=== PATIENT | female | born 1965 | race Caucasian/White ===

== ENCOUNTER 2017-02-01 17:29 | Emergency (ER) | payer MEDICAID ==
[~2017-02-01 17:29] MED LIST: ABILIFY20 MG PO; ACT30 PO; ALLERGY RELIEF10 MG PO; ASPIRIN81 M1 PO; DOK100 M2 PO; GLUCOTROL5 MG PO; HYD25 PO; IBIFON 600600 MG PO; LAMICTAL XR250 MG PO; LANTI SQ; LEXAPRO5 MG PO; LIP80 PO; METFORMIN HCL850 MG PO; PRO40 PO; RANITIDINE150 MG PO; REGLAN10 MG PO; SING10 PO; VENTOLIN H0.09 MG/Ac PO; ZES10 PO
[2017-02-01 21:22] VITALS: BP 142/79
== END 2017-02-01 21:22 | disposition home or self-care (01) ==
LOC: ED 17:29
DX: N61.0 Mastitis without abscess (principal); I10 Essential (primary) hypertension; E11.9 Type 2 diabetes mellitus without complications; E78.00 Pure hypercholesterolemia, unspecified; Z88.2 Allergy status to sulfonamides; Z88.8 Allergy status to other drugs, medicaments and biological substances
CPT/HCPCS: 76641

== ENCOUNTER 2017-04-23 15:14 | Emergency (ER) | payer MEDICAID | END 2017-04-23 17:11 | disposition left against medical advice (07) | LOC: ED 15:14 | DX: Z53.21 Procedure and treatment not carried out due to patient leaving prior to being seen by health care provider (principal) ==

== ENCOUNTER 2017-05-01 04:51 | Emergency (ER) | payer MEDICAID ==
[~2017-05-01] VITALS: Ht 162.6 cm; Wt 117.9 kg
[2017-05-01 04:59] VITALS: Ht 162.6 cm; Wt 117.9 kg
[2017-05-01 08:12] VITALS: BP 115/74
== END 2017-05-01 08:12 | disposition home or self-care (01) ==
LOC: ED 04:51
DX: J06.9 Acute upper respiratory infection, unspecified (principal); I10 Essential (primary) hypertension; E11.9 Type 2 diabetes mellitus without complications; E78.00 Pure hypercholesterolemia, unspecified; Z88.2 Allergy status to sulfonamides; Z88.1 Allergy status to other antibiotic agents
CPT/HCPCS: 82962; Q0162

== ENCOUNTER 2017-05-03 22:06 | Emergency (ER) | payer MEDICAID ==
[2017-05-03 23:10] LABS: BASOPHIL % 0.5 % (0-2); PLATELET COUNT 332 x10^3mcL (130-400)
[2017-05-03 23:13] LABS: CALCIUM 8.8 mg/dL (8.5-10.1); CARBON DIOXIDE 24.7 mmol/L (21-32); CREATININE SERUM 1.1 mg/dL (0.6-1.0); POTASSIUM SERUM 3.9 mmol/L (3.5-5.1)
[2017-05-03 23:17] LABS: UA SPECIFIC GRAVITY 1.025 (1.005-1.035); microscopic required? YES; urine erythrocyte 3+ (NEGATIVE)
[2017-05-03 23:18] LABS: ALBUMIN 3.4 g/dL (3.4-5.0); BILIRUBIN TOTAL 0.2 mg/dL (0.20-1.00); TOTAL PROTEIN, SERUM 7.1 g/dL (6.4-8.2)
[2017-05-04 00:48] VITALS: BP 140/84
== END 2017-05-04 00:48 | disposition home or self-care (01) ==
LOC: ED 22:06
PROVIDERS: Emergency Medicine
DX: N39.0 Urinary tract infection, site not specified (principal); E11.65 Type 2 diabetes mellitus with hyperglycemia; I10 Essential (primary) hypertension; E78.00 Pure hypercholesterolemia, unspecified; Z88.1 Allergy status to other antibiotic agents; Z88.6 Allergy status to analgesic agent
CPT/HCPCS: J0696; J2270

== ENCOUNTER 2017-07-16 15:31 | Emergency (ER) | payer MEDICAID ==
[~2017-07-16] VITALS: Ht 162.6 cm; Wt 119.7 kg
[2017-07-16 16:38] LABS: microscopic required? NO
[2017-07-16 17:06] LABS: BASOPHIL % 0.6 % (0-2); PLATELET COUNT 254 x10^3mcL (130-400); RED CELL DISTRIBUTION WIDTH 13.8 % (11.5-14.5)
[2017-07-16 17:18] LABS: urine erythrocyte NEGATIVE (NEGATIVE)
[2017-07-16 17:19] LABS: CALCIUM 8.3 mg/dL (8.5-10.1); CARBON DIOXIDE 26.4 mmol/L (21-32); CHLORIDE SERUM 102 mmol/L (98-107); GFR1 > 60 mL/min; GLUCOSE SERUM 394 mg/dL (74-106); POTASSIUM SERUM 3.9 mmol/L (3.5-5.1); SODIUM SERUM 136 mmol/L (136-145)
[2017-07-16 17:31] LABS: ALBUMIN 2.9 g/dL (3.4-5.0); ALKALINE PHOSPHATASE 119 U/L (46-116); ALT/SGPT 25 U/L (14-59); AMYLASE 70 U/L (25-115); AST/SGOT 10 U/L (15-37); BILIRUBIN TOTAL 0.1 mg/dL (0.20-1.00); CHOLESTEROL 170 mg/dL (<200); HDL CHOLESTEROL 40 mg/dL (40-60); LIPASE 607 IU/L (73-393); T4(THYROXINE) 6.4 ug/dL (4.7-13.3); TOTAL PROTEIN, SERUM 6.1 g/dL (6.4-8.2)
[2017-07-16 18:59] VITALS: BP 132/71
== END 2017-07-16 19:00 | disposition home or self-care (01) ==
LOC: ED 15:31
PROVIDERS: Emergency Medicine
DX: K85.90 Acute pancreatitis without necrosis or infection, unspecified (principal); E11.65 Type 2 diabetes mellitus with hyperglycemia; I10 Essential (primary) hypertension; E66.01 Morbid (severe) obesity due to excess calories; E78.00 Pure hypercholesterolemia, unspecified; F17.210 Nicotine dependence, cigarettes, uncomplicated; Z71.6 Tobacco abuse counseling; Z90.5 Acquired absence of kidney; Z88.1 Allergy status to other antibiotic agents
CPT/HCPCS: 82962; 83880; 99406; J1815; J2405; J3010; J7030

== ENCOUNTER 2017-10-26 20:10 | Emergency (ER) | payer MEDICAID ==
[~2017-10-26] VITALS: Ht 162.6 cm; Wt 116.6 kg
[2017-10-26 20:15] VITALS: Ht 162.6 cm; Wt 116.6 kg
[2017-10-26 20:56] LABS: BASOPHIL % 0.8 % (0-2); PLATELET COUNT 304 x10^3mcL (130-400); RED CELL DISTRIBUTION WIDTH 14.1 % (11.5-14.5)
[2017-10-26 21:06] LABS: CALCIUM 8.7 mg/dL (8.5-10.1); CARBON DIOXIDE 24.9 mmol/L (21-32); CREATININE SERUM 1.2 mg/dL (0.6-1.0); POTASSIUM SERUM 4.2 mmol/L (3.5-5.1)
[2017-10-26 21:10] LABS: BILIRUBIN TOTAL 0.31 mg/dL (0.20-1.00); TOTAL PROTEIN, SERUM 6.3 g/dL (6.4-8.2)
[2017-10-26 23:25] VITALS: BP 127/77
== END 2017-10-26 23:26 | disposition home or self-care (01) ==
LOC: ED 20:10
PROVIDERS: Emergency Medicine
DX: K59.00 Constipation, unspecified (principal); R05 Cough; I10 Essential (primary) hypertension; E11.9 Type 2 diabetes mellitus without complications; Z88.8 Allergy status to other drugs, medicaments and biological substances
CPT/HCPCS: J2270; J2405; Q0092

== ENCOUNTER 2018-03-28 19:42 | Emergency (ER) | payer MEDICAID ==
[~2018-03-28] VITALS: Ht 162.6 cm; Wt 116.6 kg
[2018-03-28 20:07] VITALS: Ht 162.6 cm; Wt 116.6 kg
[2018-03-28 20:40] LABS: BASOPHIL % 1.1 % (0-2); PLATELET COUNT 307 x10^3mcL (130-400); RED CELL DISTRIBUTION WIDTH 13.5 % (11.5-14.5)
[2018-03-28 21:00] LABS: CALCIUM 9.5 mg/dL (8.5-10.1); CARBON DIOXIDE 29.7 mmol/L (21-32); CHLORIDE SERUM 100 mmol/L (98-107); GFR1 > 60 mL/min; GLUCOSE SERUM 232 mg/dL (74-106); POTASSIUM SERUM 3.8 mmol/L (3.5-5.1); SODIUM SERUM 136 mmol/L (136-145)
[2018-03-28 21:05] LABS: ALBUMIN 3.5 g/dL (3.4-5.0); ALKALINE PHOSPHATASE 156 U/L (46-116); ALT/SGPT 36 U/L (14-59); AST/SGOT 12 U/L (15-37); BILIRUBIN TOTAL 0.35 mg/dL (0.20-1.00); LIPASE 121 IU/L (73-393); TOTAL PROTEIN, SERUM 7.3 g/dL (6.4-8.2)
[2018-03-28 23:22] VITALS: BP 116/64
== END 2018-03-28 23:23 | disposition home or self-care (01) ==
LOC: ED 19:42
PROVIDERS: Emergency Medicine
DX: R10.12 Left upper quadrant pain (principal); R10.32 Left lower quadrant pain; R51 Headache; I10 Essential (primary) hypertension; E11.9 Type 2 diabetes mellitus without complications; E78.00 Pure hypercholesterolemia, unspecified; Z98.890 Other specified postprocedural states; Z88.1 Allergy status to other antibiotic agents; Z88.2 Allergy status to sulfonamides
CPT/HCPCS: J2270; J2765; Q0092

== ENCOUNTER 2018-08-10 16:57 | Emergency (ER) | payer MEDICAID ==
[2018-08-10 18:26] LABS: BASOPHIL % 0.3 % (0-2); PLATELET COUNT 287 x10^3mcL (130-400); RED CELL DISTRIBUTION WIDTH 13.8 % (11.5-14.5)
[2018-08-10 18:38] LABS: UA SPECIFIC GRAVITY >=1.030 (1.005-1.035); microscopic required? YES; urine erythrocyte 3+ (NEGATIVE)
[2018-08-10 19:39] LABS: ALKALINE PHOSPHATASE 142 U/L (46-116); ALT/SGPT 28 U/L (14-59); AST/SGOT 14 U/L (15-37); BILIRUBIN TOTAL 0.27 mg/dL (0.20-1.00); CALCIUM 8.5 mg/dL (8.5-10.1); CARBON DIOXIDE 26.9 mmol/L (21-32); CHLORIDE SERUM 106 mmol/L (98-107); CREATININE SERUM 0.9 mg/dL (0.6-1.0); GFR1 > 60 mL/min; GLUCOSE SERUM 72 mg/dL (74-106); POTASSIUM SERUM 3.5 mmol/L (3.5-5.1); SODIUM SERUM 140 mmol/L (136-145); TOTAL PROTEIN, SERUM 6.7 g/dL (6.4-8.2)
[2018-08-10 19:40] LABS: ALBUMIN 3.3 g/dL (3.4-5.0)
[2018-08-10 22:33] VITALS: BP 128/88
== END 2018-08-10 22:33 | disposition home or self-care (01) ==
LOC: ED 16:57
PROVIDERS: Emergency Medicine
DX: N39.0 Urinary tract infection, site not specified (principal); I10 Essential (primary) hypertension; E11.9 Type 2 diabetes mellitus without complications; E78.00 Pure hypercholesterolemia, unspecified; Z98.890 Other specified postprocedural states; Z88.2 Allergy status to sulfonamides; Z88.1 Allergy status to other antibiotic agents; Z90.89 Acquired absence of other organs
CPT/HCPCS: 82962; J0696; J1885; J2270; J7030

== ENCOUNTER 2018-08-18 12:19 | Inpatient (IN) | payer MEDICAID ==
[~2018-08-18] VITALS: Ht 162.6 cm; Wt 114.3 kg
[2018-08-18 12:22] VITALS: Ht 162.6 cm; Wt 114.3 kg
--- NOTE | 2018-08-18 13:11 | NUR ---
PT BIB SELF C/C CP STS STARTED LAST NIGHT STS LT NUMBNESS X 1 WK PLACED ON MONITOR AWAITING FOR DR GENEVIEVE MENDEZ
--- NOTE | 2018-08-18 13:36 | NUR ---
DR BUTLER AT BEDSIDE TO VANESSA
[2018-08-18 13:56] LABS: PLATELET COUNT 242 x10^3mcL (130-400); RED CELL DISTRIBUTION WIDTH 13.8 % (11.5-14.5)
--- NOTE | 2018-08-18 14:01 | NUR ---
XRAY AT BEDSIDE
[2018-08-18 14:08] LABS: CARBON DIOXIDE 27.4 mmol/L (21-32); CHLORIDE SERUM 99 mmol/L (98-107); CREATININE SERUM 0.9 mg/dL (0.6-1.0); GFR1 > 60 mL/min; GLUCOSE SERUM 402 mg/dL (74-106); SODIUM SERUM 135 mmol/L (136-145)
[2018-08-18 14:13] LABS: ALKALINE PHOSPHATASE 175 U/L (46-116); ALT/SGPT 28 U/L (14-59); AST/SGOT 11 U/L (15-37); BILIRUBIN TOTAL 0.2 mg/dL (0.20-1.00); CHOLESTEROL 186 mg/dL (<200); HDL CHOLESTEROL 46 mg/dL (40-60); TOTAL PROTEIN, SERUM 6.9 g/dL (6.4-8.2)
[2018-08-18 14:15] LABS: ALBUMIN 3.2 g/dL (3.4-5.0); TRIGLYCERIDES 231 mg/dL (<150)
[2018-08-18 14:52] LABS: AMPHETAMINE QUAL UR NONE DETECTED (See below)
[2018-08-18 15:34] LABS: BAND NEUTROPHIL 0 % (0-10); SEGMENTED NEUTROPHILS 73 % (37-75)
[2018-08-18 15:35] LABS: MONOCYTE 6 % (0-7); rbc morphology (normal/abnorm) ABNORMAL (NORMAL)
--- NOTE | 2018-08-18 17:25 | NUR ---
MANAGER OF REVENUE AT BEDSIDE FOR BLOOD DRAW
--- NOTE | 2018-08-18 17:57 | NUR ---
PLEASE ENTER FULL NAMES OF CARPET FINISHING SUPERVISOR/RN Patient data collected by (CARPET FINISHING SUPERVISOR):Anselmo PORRAS Assessment reviewed and completed by (RN):Valentín ROMAN
--- NOTE | 2018-08-18 19:12 | NUR ---
REPORT RECIEVED FROM MARLON LINE INSPECTOR. PT LAYING IN BED, AWAKE AND ALERT. VSS, RESPS E/U, NAD NOPTED AT THIS TIME. 2 BED RAILS UP, BED IN LOW AND LOCKED POSITION, CALL LIGHT W/IN REACH. PT C/O 01/01 PAIN, MADE AWARE.
--- NOTE | 2018-08-18 20:05 | NUR ---
MEDICATION ADMINISTERED PER MD ORDER
[2018-08-18 20:13] LABS: microscopic required? NO
--- NOTE | 2018-08-18 20:15 | NUR ---
PT AWAKE AND ALERT, LAYING IN POSITION OF COMFORT. 2 BED RAILS UP, BED IN LOW AND LOCKED POSITION. RESPS E/U, NAD NOTED. PT REPORTS RELIEF OF PAIN TO 4/10.
[2018-08-18 20:23] LABS: urine erythrocyte NEGATIVE (NEGATIVE)
[2018-08-18] MEDS ORDERED: ZESTRIL20 MG PO (20:46)
[2018-08-18] MEDS ORDERED: LANTUS SOLOS100 U/M1 (20:47)
--- NOTE | 2018-08-18 20:54 | NUR ---
REPORT GIVEN TO LORETO HERNANDES
[2018-08-18 20:56] LABS: T3 TOTAL 1.12 ng/mL
[2018-08-18 20:58] LABS: MAGNESIUM 1.7 mg/dL (1.8-2.4); PHOSPHOROUS 3.4 mg/dL (2.5-4.9)
[2018-08-18 21:09] LABS: FREE T4 1.02 ng/dL (0.76-1.46); FREE THYROXINE INDEX 2.6 ug/dL (1.4-4.5); T4(THYROXINE) 7.5 ug/dL (4.7-13.3)
[2018-08-18 21:31] VITALS: BP 119/76
--- NOTE | 2018-08-18 21:43 | NUR ---
RECEIVED PT FROM ER, PT ADMIT FOR CHEST PAIN, PT IS A/O X4, VERBAL RESPONSIVE, ABLE TO TELL WHAT SHE NEEDS. LUNG SOUND CLEAR BILATERAL, NO COUGH, NO SOB, PT IS ON TELE 18, NSR, C/O MILD CHEST PAIN 2/10, RADIATE TO BACK, AND NUMBNESS AT LEFT ARM AND FACE. BOWEL SOUND PRESENT ALL 4 QUADRANTS, NO DISTENTION, NO TENDER, PEDAL PULSE PRESENT BOTH FEET, NO EDEMA, IV AT LEFT HAND, NO LEAKING, NO INFILTRATION. ALL ADLS ASSIST, ALL NEED MET, CALL LIGHT IN REACH, WILL CONTINUE TO MONITOR.
--- NOTE | 2018-08-18 21:50 | NUR ---
RECIEVED PATIENT REPORTING 5/10 PAIN TO HER CHEST. TROPONIN NEG, TELE #18 NSR. WILL MEDICATE PER EMAR.
--- NOTE | 2018-08-18 22:08 | NUR ---
PATIENT MEDICATED WITH NORCO PER EMAR FOR 5/10 PAIN TO HER CHEST. ONE TIME ORDER FOR AMBIEN PO ALSO GIVEN PER EMAR. BED LOCKED AND IN LOWEST POSITION. CALL LIGHT AND BEDIDE TABLE WITHIN REACH. SAFETY REINFORCED. PATIENT ENCOURAGED TO USE CALL LIGHT FOR ALL NEEDS. WILL CONTINUE TO MONITOR.
[2018-08-19 06:10] VITALS: BP 117/68
--- NOTE | 2018-08-19 06:30 | NUR ---
PATIENT REPORTED MALDONADO AND STATES THAT SHE DOES NOT WANT TYLENOL OR NORCO. SHE REQUESTED IBUPROFEN INSTEAD. DR. TAN NOTIFIED. AWAITING ORDER.
[2018-08-19 06:43] LABS: BASOPHIL % 0.8 % (0-2); PLATELET COUNT 264 x10^3mcL (130-400); RED CELL DISTRIBUTION WIDTH 13.7 % (11.5-14.5)
[2018-08-19 07:06] LABS: CALCIUM 8.1 mg/dL (8.5-10.1); CARBON DIOXIDE 26.3 mmol/L (21-32); CHLORIDE SERUM 103 mmol/L (98-107); CREATININE SERUM 0.8 mg/dL (0.6-1.0); GFR1 > 60 mL/min; GLUCOSE SERUM 253 mg/dL (74-106); MAGNESIUM 1.8 mg/dL (1.8-2.4); PHOSPHOROUS 3.4 mg/dL (2.5-4.9); POTASSIUM SERUM 4.2 mmol/L (3.5-5.1); SODIUM SERUM 137 mmol/L (136-145)
--- NOTE | 2018-08-19 07:23 | NUR ---
RECEIVED PT FROM SHIFT NURSE ASLEEP BUT AROUSABLE. RESP EVEN AND UNLABORED ON RA. IV INTACT AND PATENT. BED IN LOW POSITION. CALL LIGHT WITHIN REACH. WILL CONTINUE TO MONITOR.
[2018-08-19 09:17] VITALS: BP 104/60
--- NOTE | 2018-08-19 10:45 | NUR ---
PT ASLEEP BUT AROUSABLE. APPEARS IN NO ACUTE DISTRESS. CALL LIGHT WITHIN REACH. WILL CONTINUE TO MONITOR.
--- NOTE | 2018-08-19 12:39 | NUR ---
PT SITTING UP IN BED EATING LUNCH. NO ACUTE DISTRESS NOTED. CALL LIGHT WITHIN REACH. WILL CONTINUE TO MONITOR.
[2018-08-19 12:43] VITALS: BP 130/61
--- NOTE | 2018-08-19 16:13 | NUR ---
PT C/O OF HEADACHE 12/01. GAVE NORCO ORDERED. WILL CONTINUE TO MONITOR.
--- NOTE | 2018-08-19 16:45 | NUR ---
PT ASLEEP BUT AROUSABLE. WILL CONTINUE TO MONITOR.
[2018-08-19 18:00] VITALS: BP 132/79
--- NOTE | 2018-08-19 18:19 | NUR ---
PT SITTING ON CHAIR EATING DINNER. NO C/O OF CHEST PAIN OR PRESSURE. IV INTACT AND PATENT. FAMILY MEMBER AT BEDSIDE. CALL LIGHT WITHIN REACH. WILL BE ENDORSED.
--- NOTE | 2018-08-19 19:30 | NUR ---
REC'D PT FROM DAY NURSE. AT BEDSIDE. PT SITTING AT THE SIDE OF THE BED. AAOX4, SPEECH CLEAR, FOLLOWS COMMANDS. TELE 18. DENIES DIZZINESS OR PALPITATIONS. C/O STERNAL CHEST PRESSURE 5/10, TOLERABLE AND DENIED PAIN MEDS. ALSO C/O THROBBING 7/10 MALDONADO. DENIED TYLENOL. NORCO NOT YET DUE- WILL WAIT FOR NORCO. DENIES RESP DISTRESS OR SOB. BREATHING EVEN/UNLABORED ON RA. ABD SOFT/ROUND. DENIES ABD PAIN, TENDERNESS, OR N/V. INFORMED PT SHE WILL BE NPO AFTER 0300 D/T STRESS TEST @ 1100. PT VERBALIZED UNDERSTANDING. VOIDING FREELY. DENIES DYSURIA BUT C/O FREQUENCY. AMBULATORY. SKIN INTACT. IV TO LH PATENT AND INFUSING, SITE WNL. CALL LIGHT WITHIN REACH, BED AT LOWEST POSITION. WILL CONTINUE TO MONITOR.
--- NOTE | 2018-08-19 20:35 | NUR ---
SPOKE TO DR. TAN. MADE AWARE OF PT'S REQUEST FOR SLEEP AID TONIGHT. RECEIVED STEVEN LAST NIGHT.
[2018-08-19 21:37] VITALS: BP 124/61
--- NOTE | 2018-08-19 22:27 | NUR ---
PT RESTING IN BED WITH EYES CLOSED. LAYING ON L SIDE. SNORING. EYE MASK ON. NO SIGNS OF DISTRESS OR PAIN NOTED. BREATHING EVEN/UNLABORED ON RA. CALL LIGHT WITHIN REACH, BED AT LOWEST POSITION. WILL CONTINUE TO MONITOR.
[2018-08-20 00:08] VITALS: BP 155/88
--- NOTE | 2018-08-20 00:09 | NUR ---
PT STATES SHE GOT UP THEN FELT DIZZY. PT ALSO FEELS DIAPHORETIC AND HAS SOME SOB. DENIES CP BUT REPORTS SOME PALPITATIONS. VSS, BP 155/88, SPO2 94% ON RA. TELE READING NSR. BS 350. C/O MALDONADO 10/31. WILL GIVE NORCO PER ORDER AND SEE IF THAT HELPS. WILL CONTINUE TO MONITOR.
--- NOTE | 2018-08-20 01:14 | NUR ---
PT RESTING IN BED WITH EYES CLOSED AND SNORING. LAYING ON R SIDE. NO S/SX OF PAIN NOTED. BREATHING EVEN/UNLABORED ON RA. CALL LIGHT WITHIN REACH. WILL CONTINUE TO MONTIOR.
--- NOTE | 2018-08-20 03:21 | NUR ---
PT REPORTS FEELING LIKE HER BLOOD SUGAR MIGHT BE LOW. FEELS DIZZY AND DIAPHORETIC TO THE NECK BUT DOES NOT WANT THE AIR ON. DENIES SOB OR CHEST PAIN. BS 249. WILL CONTINUE TO MONITOR.
[2018-08-20 05:27] VITALS: BP 131/69
--- NOTE | 2018-08-20 05:34 | NUR ---
PT RESTING IN BED WITH EYES CLOSED. EASILY AROUSABLE. BREATHING EVEN/UNLABORED ON RA. NO S/SX OF PAIN OR DISTRESS NOTED. PT HAS BEEN NPO SINCE MIDNIGHT. STRESS TEST TODAY. CALL LIGHT WITHIN REACH, BED AT LOWEST POSITION. WILL ENDORSE TO DAY NURSE.
[2018-08-20 06:58] LABS: BASOPHIL % 0.7 % (0-2); PLATELET COUNT 254 x10^3mcL (130-400); RED CELL DISTRIBUTION WIDTH 13.4 % (11.5-14.5)
--- NOTE | 2018-08-20 07:15 | NUR ---
SEEN IN BED AAOX4. NO RESP DISTRESS NOTED. BREATHING E/U ON ROOM AIR. DENIES CHEST PAIN. TELE#18 NSR. KEPT NPO FOR STRESS TEST TODAY AT 11:00AM. IVF NS TO LT HAND INFUSING WELL. PLAN OF CARE INFORMED, CALL LIGHT PLACED WITHIN EASY REACH, SIDERAILS UP X2.
[2018-08-20 07:32] LABS: CALCIUM 8.1 mg/dL (8.5-10.1); CARBON DIOXIDE 26.3 mmol/L (21-32); CHLORIDE SERUM 104 mmol/L (98-107); CREATININE SERUM 0.8 mg/dL (0.6-1.0); GFR1 > 60 mL/min; GLUCOSE SERUM 235 mg/dL (74-106); POTASSIUM SERUM 4.5 mmol/L (3.5-5.1); SODIUM SERUM 138 mmol/L (136-145)
--- NOTE | 2018-08-20 09:30 | NUR ---
STATED IV TO LT HAND HURTING NO ERYTHEMA OR INFILTRATION NOTED, IV CATHETER REMOVED, DRSG APPLIED. NEW IV CATH#22 INSERTED TO RFA WITH GOOD BLD RETURNED AND FLUSHED WELL. DENIES PAIN. SEEN BY DOCTOR JESUS AND DOCTOR JULIO CESAR AT BEDSIDE, PATIENT MADE AWARE PLAN OF CARE.
[2018-08-20 09:46] VITALS: BP 154/80
--- NOTE | 2018-08-20 11:02 | NUR ---
OFF FLOOR FOR STRESS TEST.
[2018-08-20 12:41] VITALS: BP 149/84
--- NOTE | 2018-08-20 12:45 | NUR ---
RECEIVED BACK FROM STRESS TEST, AWAKE,ALERT, ORIENTED X4. DENIES CHEST PAIN. STATED HAVING SEVERE ITCHINESS ALL OVER BODY, NO ERYTHEMA NOTED. DOCTOR DELIA NOTIFIED. NOTED NEW ORDER FOR BENADRYL IV X1.
--- NOTE | 2018-08-20 12:59 | NUR ---
BENADRYL 25MG IVP SLOWLY GIVEN FOR ITCHINESS. NO ANY DISTRESS NOTED. IV SITE TO RFA FLUSHED WELL.
--- NOTE | 2018-08-20 13:08 | NUR ---
STATED ITCHING IS BETTER.
--- NOTE | 2018-08-20 13:30 | NUR ---
STATED HAVING HEADACHE, REFUSED TYLENOL OFFERRED STATED PREFER NORCO.
--- NOTE | 2018-08-20 13:46 | NUR ---
NOTED FINISHED 100% OF LUNCH, NORCO 1 TAB PO GIVEN AT THIS TIME FOR HEADACHE.
--- NOTE | 2018-08-20 14:55 | NUR ---
Discount pharmacy card and list to low cost medical clinics given to patient by Johan Bhandari.
[2018-08-20 16:40] VITALS: BP 112/69
--- NOTE | 2018-08-20 17:56 | NUR ---
NO ANY DISTRESS THROUGHOUT SHIFT. DENIES CHEST PAIN. STATED ITCHINESS IS GONE AFTER BENADRYL GIVEN. BRP. IVF NS TO RFA INFUSING WELL.
--- NOTE | 2018-08-20 20:00 | NUR ---
RECEIVED PT IN BED, A/O X4. ABLE TO VERBALIZE NEEDS. DENIES HEADACHE/DIZZINESS. RESP. EVEN AND UNLABORED. ON ROOM AIR, NO ACUTE DISTRESS NOTED. SR ON THE MONITOR, DENIES CHEST PAIN OR ANY DISCOMFORT AT THIS TIME. IVF, NS AT 100ML/HR, INTACT AND INFUSING VIA LH, SITE CLEAR. AMBULATORY. VOIDING FREELY. CALL LIGHT WITHIN REACH. WILL CONTINUE TO MONITOR.
[2018-08-20 20:48] VITALS: BP 125/74
--- NOTE | 2018-08-20 21:38 | NUR ---
COMPLAINING OGF GEN. BODY ITCHINESS, DR BORGES NOTIFIED. BENADRYL IV GIVEN ORDERED. WILL CONTINUE TO MONITOR.
--- NOTE | 2018-08-21 03:07 | NUR ---
RESTING QUIETLY IN BED WITH EYES CLOSED, APPEARS ASLEEP, EASILY AROUSABLE. RESP EVEN AND UNLABORED. NO ACUTE DISTRESS NOTED. WILL CONTINUE TO MONITOR.
[2018-08-21 05:57] VITALS: BP 139/66
--- NOTE | 2018-08-21 06:13 | NUR ---
NO COMPLAINTS NOTED AT THIS TIME. DENIES PAIN OR ANY DISCOMFORT. AFEBRILE AND VITAL SIGNS STABLE. RESP. EVEN AND UNLABORED. NO ACUTE DISTRESS NOTED. DENIES CHEST PAIN OR ANY DISCOMFORT. IVF INTACT AND INFUSING WELL, SITE CLEAR. VOIDING FREELY. SLEPT WELL. WILL CONTINUE TO MONITOR.
--- NOTE | 2018-08-21 07:15 | NUR ---
SEEN IN BED AAOX4. NO RESP DISTRESS NOTED. DENIES CHEST PAIN/PRESSURE. TELE# 18 NSR, HR =70. ON CCHO DIET. VOIDS, STATED AMBULATORY WELL. IVF NS TO RFA INFUSING WELL AT 100ML/HR. PLAN OF CARE DISCUSSED. CALL LIGHT PLACED WITHIN EASY REACH. SIDERAILS UP X2.
[2018-08-21 09:20] VITALS: BP 146/76
--- NOTE | 2018-08-21 09:20 | NUR ---
BENADRYL 25MG IVP GIVEN FOR BODY ITCHINESS. WILL CONTINUE TO MONITOR.
[2018-08-21] MEDS ORDERED: ECO81 PO (09:34)
[2018-08-21] MEDS ORDERED: ATORVASTATIN CA40 M1 PO (09:35)
--- NOTE | 2018-08-21 10:00 | NUR ---
STATED FEELING BETTER AFTER BENADRYL GIVEN.
[2018-08-21 10:58] VITALS: BP 146/76
[2018-08-21] MEDS ORDERED: BENADRYL ALLERG25 M1 PO (11:21)
--- NOTE | 2018-08-21 11:32 | NUR ---
DOCTOR ALBERT AND MEDICAL TEAM AT BEDSIDE FOR AM ROUND. PATIENT MADE AWARE DISCHARGE HOME PLAN TODAY. PATIENT'S SPOUSE AT BEDSIDE.
--- NOTE | 2018-08-21 11:47 | NUR ---
DISCHARGE INSTRUCTION/PRESCRIPTION EXPLAINED AND GIVEN TO PATIENT WHO IS AWAKE,ALERT, ORIENTED X4. S/L REMOVED NO SIGNS OF INFECTION, DRSG APPLIED. TELEMETRY CLEANED AND RETURNED TO [place]. BROUGHT VIA WHEELCHAIR TO LOBBY ACCOMPANIED BY HER SPOUSE. CONDITION STABLE UPON DISCHARGE.
== END 2018-08-21 11:47 | disposition home or self-care (01) | DRG 203 ==
LOC: ED 12:19 → DU 20:11
PROVIDERS: Emergency Medicine; ADMIT General Practice
DX: R07.89 Other chest pain (principal); E11.65 Type 2 diabetes mellitus with hyperglycemia; E87.1 Hypo-osmolality and hyponatremia; E44.1 Mild protein-calorie malnutrition; E83.42 Hypomagnesemia; I10 Essential (primary) hypertension; E78.5 Hyperlipidemia, unspecified; F17.220 Nicotine dependence, chewing tobacco, uncomplicated; E66.9 Obesity, unspecified; Z68.41 Body mass index [BMI] 40.0-44.9, adult; Z79.84 Long term (current) use of oral hypoglycemic drugs; Z90.5 Acquired absence of kidney
CPT/HCPCS: 82962; 83880; 84439; 99406; A9500; J1200; J1815; J2270; J2405; J2785; J7030; Q0092; Q0163

== ENCOUNTER 2018-08-21 19:25 | Emergency (ER) | payer MEDICAID ==
[~2018-08-21] VITALS: Ht 162.6 cm; Wt 114.8 kg
[~2018-08-21 19:25] MED LIST changes: +ATORVASTATIN CA40 M1 PO; +BENADRYL ALLERG25 M1 PO; +ECO81 PO; +LANTUS SOLOS100 U/M1; +ZESTRIL20 MG PO
[2018-08-21 19:44] VITALS: Ht 162.6 cm; Wt 114.8 kg
[2018-08-21 23:43] VITALS: BP 140/75
== END 2018-08-21 23:43 | disposition home or self-care (01) ==
LOC: ED 19:25
DX: L50.9 Urticaria, unspecified (principal); I10 Essential (primary) hypertension; E11.9 Type 2 diabetes mellitus without complications; E78.00 Pure hypercholesterolemia, unspecified; Z88.2 Allergy status to sulfonamides; Z88.1 Allergy status to other antibiotic agents
CPT/HCPCS: J1200; J2060; J2930; J3490

== ENCOUNTER 2018-08-23 00:09 | Emergency (ER) | payer MEDICAID ==
[~2018-08-23] VITALS: Ht 154.9 cm; Wt 112.5 kg
[2018-08-23 00:18] VITALS: BP 148/83; Ht 154.9 cm; Wt 112.5 kg
== END 2018-08-23 02:30 | disposition left against medical advice (07) ==
LOC: ED 00:09
DX: T78.40XA Allergy, unspecified, initial encounter (principal); I10 Essential (primary) hypertension; E11.9 Type 2 diabetes mellitus without complications; Z88.2 Allergy status to sulfonamides; Z88.1 Allergy status to other antibiotic agents; Z98.890 Other specified postprocedural states; X58.XXXA Exposure to other specified factors, initial encounter

== ENCOUNTER 2018-08-26 10:26 | Emergency (ER) | payer MEDICAID ==
[~2018-08-26] VITALS: Ht 162.6 cm; Wt 112.0 kg
[2018-08-26 10:48] VITALS: BP 120/74; Ht 162.6 cm; Wt 112.0 kg
[2018-08-26 12:16] LABS: CALCIUM 8.5 mg/dL (8.5-10.1); CARBON DIOXIDE 28.6 mmol/L (21-32); CHLORIDE SERUM 101 mmol/L (98-107); GFR1 > 60 mL/min; GLUCOSE SERUM 215 mg/dL (74-106); POTASSIUM SERUM 3.4 mmol/L (3.5-5.1); SODIUM SERUM 137 mmol/L (136-145)
[2018-08-26 12:17] LABS: BASOPHIL % 1.3 % (0-2); PLATELET COUNT 317 x10^3mcL (130-400); RED CELL DISTRIBUTION WIDTH 13.7 % (11.5-14.5)
[2018-08-26 12:21] LABS: ALBUMIN 3.5 g/dL (3.4-5.0); ALKALINE PHOSPHATASE 160 U/L (46-116); ALT/SGPT 29 U/L (14-59); AST/SGOT 9 U/L (15-37); BILIRUBIN TOTAL 0.3 mg/dL (0.20-1.00)
== END 2018-08-26 13:47 | disposition home or self-care (01) ==
LOC: ED 10:26
PROVIDERS: Emergency Medicine
DX: L29.9 Pruritus, unspecified (principal); T78.40XA Allergy, unspecified, initial encounter; I10 Essential (primary) hypertension; E11.9 Type 2 diabetes mellitus without complications; E78.00 Pure hypercholesterolemia, unspecified; Z98.890 Other specified postprocedural states; Z88.2 Allergy status to sulfonamides; Z88.1 Allergy status to other antibiotic agents; Z90.89 Acquired absence of other organs; X58.XXXA Exposure to other specified factors, initial encounter
CPT/HCPCS: J1200; J2930

== ENCOUNTER 2018-12-11 07:52 | Emergency (ER) | payer MEDICAID ==
[~2018-12-11] VITALS: Ht 162.6 cm; Wt 109.8 kg
[2018-12-11 07:58] VITALS: Ht 162.6 cm; Wt 109.8 kg
[2018-12-11 08:51] LABS: BASOPHIL % 0.8 % (0-2); PLATELET COUNT 238 x10^3mcL (130-400); RED CELL DISTRIBUTION WIDTH 13.8 % (11.5-14.5)
[2018-12-11 09:01] LABS: CALCIUM 8.3 mg/dL (8.5-10.1); CARBON DIOXIDE 24.3 mmol/L (21-32); CHLORIDE SERUM 100 mmol/L (98-107); CREATININE SERUM 0.9 mg/dL (0.6-1.0); GFR1 > 60 mL/min; GLUCOSE SERUM 374 mg/dL (74-106); POTASSIUM SERUM 4.4 mmol/L (3.5-5.1); SODIUM SERUM 134 mmol/L (136-145)
[2018-12-11 09:06] LABS: microscopic required? YES; urine erythrocyte NEGATIVE (NEGATIVE)
[2018-12-11 09:14] LABS: ALKALINE PHOSPHATASE 153 U/L (46-116); ALT/SGPT 30 U/L (14-59); AST/SGOT 10 U/L (15-37); BILIRUBIN TOTAL 0.4 mg/dL (0.20-1.00); HDL CHOLESTEROL 43 mg/dL (40-60); LIPASE 132 IU/L (73-393); T4(THYROXINE) 8.5 ug/dL (4.7-13.3); TOTAL PROTEIN, SERUM 6.3 g/dL (6.4-8.2)
[2018-12-11 09:17] LABS: ALBUMIN 2.9 g/dL (3.4-5.0); CHOLESTEROL 242 mg/dL (<200)
[2018-12-11 09:35] LABS: AMPHETAMINE QUAL UR NONE DETECTED (See below)
[2018-12-11 12:34] VITALS: BP 136/97
== END 2018-12-11 12:34 | disposition home or self-care (01) ==
LOC: ED 07:52
PROVIDERS: Emergency Medicine
DX: E11.65 Type 2 diabetes mellitus with hyperglycemia (principal); I10 Essential (primary) hypertension; F17.210 Nicotine dependence, cigarettes, uncomplicated; E78.00 Pure hypercholesterolemia, unspecified; E66.01 Morbid (severe) obesity due to excess calories; Z68.41 Body mass index [BMI] 40.0-44.9, adult; Z98.890 Other specified postprocedural states; Z88.2 Allergy status to sulfonamides
CPT/HCPCS: 36600; 82962; 99406; J1815; J1885; J7030

== ENCOUNTER 2019-03-27 12:49 | Emergency (ER) | payer MEDICAID ==
[~2019-03-27] VITALS: Ht 165.1 cm; Wt 104.3 kg
[2019-03-27 13:01] VITALS: Ht 165.1 cm; Wt 104.3 kg
[2019-03-27 14:08] LABS: BASOPHIL % 0.7 % (0-2); PLATELET COUNT 211 x10^3mcL (130-400); RED CELL DISTRIBUTION WIDTH 13.7 % (11.5-14.5)
[2019-03-27 14:42] LABS: CALCIUM 7.9 mg/dL (8.5-10.1); CARBON DIOXIDE 25.7 mmol/L (21-32); CHLORIDE SERUM 107 mmol/L (98-107); CREATININE SERUM 0.9 mg/dL (0.6-1.0); GFR1 > 60 mL/min; GLUCOSE SERUM 387 mg/dL (74-106); POTASSIUM SERUM 3.8 mmol/L (3.5-5.1); SODIUM SERUM 141 mmol/L (136-145)
[2019-03-27 17:42] VITALS: BP 114/70
== END 2019-03-27 17:42 | disposition home or self-care (01) ==
LOC: ED 12:49
PROVIDERS: Emergency Medicine
DX: M54.16 Radiculopathy, lumbar region (principal); I10 Essential (primary) hypertension; E11.9 Type 2 diabetes mellitus without complications; E78.00 Pure hypercholesterolemia, unspecified; Z98.890 Other specified postprocedural states; Z90.89 Acquired absence of other organs; Z88.2 Allergy status to sulfonamides; Z88.1 Allergy status to other antibiotic agents
CPT/HCPCS: 36415; J1885; J2270; Q0162

== ENCOUNTER 2019-04-12 04:07 | Emergency (ER) | payer MEDICAID ==
[~2019-04-12] VITALS: Ht 162.6 cm; Wt 106.4 kg
[2019-04-12 04:11] VITALS: Ht 162.6 cm; Wt 106.4 kg
[2019-04-12 05:59] VITALS: BP 140/84
== END 2019-04-12 05:59 | disposition home or self-care (01) ==
LOC: ED 04:07
DX: M54.42 Lumbago with sciatica, left side (principal); E66.9 Obesity, unspecified; I10 Essential (primary) hypertension; E11.9 Type 2 diabetes mellitus without complications; E78.00 Pure hypercholesterolemia, unspecified; Z68.41 Body mass index [BMI] 40.0-44.9, adult; Z88.2 Allergy status to sulfonamides
CPT/HCPCS: J1885; J2270; Q0162

== ENCOUNTER 2019-09-18 17:13 | Emergency (ER) | payer MEDICAID ==
[~2019-09-18] VITALS: Ht 162.6 cm; Wt 108.0 kg
[2019-09-18 17:25] VITALS: Ht 162.6 cm; Wt 108.0 kg
[2019-09-18 17:53] LABS: PLATELET COUNT 252 x10^3mcL (130-400); RED CELL DISTRIBUTION WIDTH 13.9 % (11.5-14.5)
[2019-09-18 18:04] LABS: CARBON DIOXIDE 25.9 mmol/L (21-32); CHLORIDE SERUM 101 mmol/L (98-107); GFR1 > 60 mL/min; GLUCOSE SERUM 298 mg/dL (74-106); POTASSIUM SERUM 3.9 mmol/L (3.5-5.1); SODIUM SERUM 138 mmol/L (136-145)
[2019-09-18 18:09] LABS: ALBUMIN 3.2 g/dL (3.4-5.0); ALKALINE PHOSPHATASE 206 U/L (46-116); ALT/SGPT 60 U/L (14-59); AST/SGOT 27 U/L (15-37); BILIRUBIN TOTAL 0.1 mg/dL (0.20-1.00)
[2019-09-18 18:39] VITALS: BP 139/87
[2019-09-18 18:51] LABS: UA SPECIFIC GRAVITY >=1.030 (1.005-1.035); microscopic required? YES; urine erythrocyte NEGATIVE (NEGATIVE)
== END 2019-09-18 18:39 | disposition home or self-care (01) ==
LOC: ED 17:13
PROVIDERS: Emergency Medicine
DX: R74.8 Abnormal levels of other serum enzymes (principal); M79.10 Myalgia, unspecified site; E66.9 Obesity, unspecified; I10 Essential (primary) hypertension; E11.9 Type 2 diabetes mellitus without complications; E78.00 Pure hypercholesterolemia, unspecified; Z98.890 Other specified postprocedural states; Z90.6 Acquired absence of other parts of urinary tract
CPT/HCPCS: 36415; 82962; J1885

== ENCOUNTER 2020-01-22 13:45 | Emergency (ER) | payer MEDICAID ==
[~2020-01-22] VITALS: Ht 162.6 cm; Wt 102.5 kg
[2020-01-22 14:21] VITALS: Ht 162.6 cm; Wt 102.5 kg
[2020-01-22 15:04] LABS: BASOPHIL % 0.7 % (0-2); PLATELET COUNT 245 x10^3mcL (130-400); RED CELL DISTRIBUTION WIDTH 13.2 % (11.5-14.5)
[2020-01-22 15:45] LABS: CALCIUM 9.1 mg/dL (8.5-10.1); CARBON DIOXIDE 23.4 mmol/L (21-32); CHLORIDE SERUM 103 mmol/L (98-107); CREATININE SERUM 0.9 mg/dL (0.6-1.0); GFR1 > 60 mL/min; GLUCOSE SERUM 377 mg/dL (74-106); POTASSIUM SERUM 3.7 mmol/L (3.5-5.1); SODIUM SERUM 136 mmol/L (136-145)
[2020-01-22 15:51] LABS: ALKALINE PHOSPHATASE 195 U/L (46-116); ALT/SGPT 44 U/L (14-59); AST/SGOT 26 U/L (15-37); BILIRUBIN TOTAL 0.19 mg/dL (0.20-1.00); TOTAL PROTEIN, SERUM 6.7 g/dL (6.4-8.2)
[2020-01-22 15:53] LABS: ALBUMIN 3.1 g/dL (3.4-5.0)
[2020-01-22 16:24] VITALS: BP 149/86
== END 2020-01-22 16:24 | disposition home or self-care (01) ==
LOC: ED 13:45
PROVIDERS: Emergency Medicine
DX: E11.65 Type 2 diabetes mellitus with hyperglycemia (principal); M79.10 Myalgia, unspecified site; G89.29 Other chronic pain; I10 Essential (primary) hypertension; E11.9 Type 2 diabetes mellitus without complications; E78.00 Pure hypercholesterolemia, unspecified; Z98.890 Other specified postprocedural states; Z88.1 Allergy status to other antibiotic agents; Z88.2 Allergy status to sulfonamides
CPT/HCPCS: 82962; J1885; J2405; J7030

== ENCOUNTER 2020-03-02 18:38 | Emergency (ER) | payer MEDICAID ==
[~2020-03-02] VITALS: Ht 162.6 cm; Wt 90.7 kg
[2020-03-02 19:13] VITALS: BP 152/87; Ht 162.6 cm; Wt 90.7 kg
== END 2020-03-02 21:19 | disposition left against medical advice (07) ==
LOC: ED 18:38
DX: Z53.21 Procedure and treatment not carried out due to patient leaving prior to being seen by health care provider (principal)

== ENCOUNTER 2020-03-20 01:06 | Inpatient (IN) | payer MEDICAID ==
[~2020-03-20] VITALS: Ht 162.6 cm; Wt 103.0 kg
[2020-03-20 01:23] VITALS: Ht 162.6 cm; Wt 103.0 kg
[2020-03-20] MEDS ORDERED: GLUMETZA1000 MG PO (06:11)
[2020-03-20] MEDS ORDERED: LEVEMIR FLEX100 U/M1 (06:12)
[2020-03-20 06:48] LABS: BASOPHIL % 0.5 % (0-2); PLATELET COUNT 290 x10^3mcL (130-400); RED CELL DISTRIBUTION WIDTH 13.8 % (11.5-14.5)
[2020-03-20 06:51] LABS: CALCIUM 8.8 mg/dL (8.5-10.1); CARBON DIOXIDE 26.3 mmol/L (21-32); CHLORIDE SERUM 107 mmol/L (98-107); CREATININE SERUM 0.9 mg/dL (0.6-1.0); GFR1 > 60 mL/min; GLUCOSE SERUM 156 mg/dL (74-106); POTASSIUM SERUM 3.1 mmol/L (3.5-5.1); SODIUM SERUM 143 mmol/L (136-145)
[2020-03-20 10:09] VITALS: BP 149/69
[2020-03-20 12:10] VITALS: BP 147/72
[2020-03-20 16:30] VITALS: BP 154/86
[2020-03-20 20:29] VITALS: BP 149/74
[2020-03-21 05:50] VITALS: BP 161/80
[2020-03-21 07:01] LABS: BASOPHIL % 0.5 % (0-2); PLATELET COUNT 267 x10^3mcL (130-400); RED CELL DISTRIBUTION WIDTH 13.7 % (11.5-14.5)
[2020-03-21 07:06] LABS: CALCIUM 8.5 mg/dL (8.5-10.1); CARBON DIOXIDE 27.1 mmol/L (21-32); CHLORIDE SERUM 107 mmol/L (98-107); CREATININE SERUM 0.9 mg/dL (0.6-1.0); GFR1 > 60 mL/min; GLUCOSE SERUM 202 mg/dL (74-106); MAGNESIUM 1.7 mg/dL (1.8-2.4); PHOSPHOROUS 3.7 mg/dL (2.5-4.9); POTASSIUM SERUM 3.6 mmol/L (3.5-5.1); SODIUM SERUM 140 mmol/L (136-145)
[2020-03-21 08:30] VITALS: BP 154/80
[2020-03-21] MEDS ORDERED: NOVAPLUS LIDOCAINE5% TOP (12:07)
[2020-03-21] MEDS ORDERED: TRAZODONE150 M1 PO (12:12)
[2020-03-21 12:26] VITALS: BP 163/77
[2020-03-21 13:11] VITALS: BP 163/77
[2020-03-21 13:12] VITALS: BP 163/77
== END 2020-03-21 15:03 | disposition home or self-care (01) | DRG 351 ==
LOC: ED 01:06 → MU 06:05
PROVIDERS: Emergency Medicine; ADMIT Family Medicine; ATTEND Family Medicine
DX: M79.604 Pain in right leg (principal); Z94.0 Kidney transplant status; Z20.828 Contact with and (suspected) exposure to other viral communicable diseases; W18.39XA Other fall on same level, initial encounter; I10 Essential (primary) hypertension; E11.9 Type 2 diabetes mellitus without complications; G89.29 Other chronic pain; F17.210 Nicotine dependence, cigarettes, uncomplicated; E78.5 Hyperlipidemia, unspecified; M19.90 Unspecified osteoarthritis, unspecified site; Z82.49 Family history of ischemic heart disease and other diseases of the circulatory system; Z83.3 Family history of diabetes mellitus; E87.6 Hypokalemia; Y93.89 Activity, other specified; Z88.2 Allergy status to sulfonamides; Z88.8 Allergy status to other drugs, medicaments and biological substances; Y99.8 Other external cause status; Z79.899 Other long term (current) drug therapy; Z80.9 Family history of malignant neoplasm, unspecified; Y92.89 Other specified places as the place of occurrence of the external cause
CPT/HCPCS: 82962; G0378; J1885; J2270